=== PATIENT | female | born 1955 | race Caucasian/White ===

== ENCOUNTER 2024-01-04 23:09 | Emergency (ER) | payer OTHER ==
[2024-01-04 23:15] VITALS: RESP 18; BMI 28.7
[2024-01-05 00:16] LABS: HEMATOCRIT 41.9 % (32.4-45.2); HEMOGLOBIN 14.2 GM/dL (10.7-15.3); MCH 30.6 pg (25.7-33.7); MEAN PLT VOLUME 8.9 fl (7.5-11.1); PLATELET COUNT 257 10^3/uL (134-434); RBC 4.65 M/mm3 (3.60-5.2); RDW 13.8 % (11.6-15.6)
[2024-01-05] MEDS: LACTATED RINGERS SOLUTION 1000 ML INFUS.BAG IV ONE (00:18)
[2024-01-05 00:27] LABS: INR 1.04 (0.83-1.09)
[2024-01-05 00:29] LABS: ACTIVATED PTT 30.8 SECONDS (25.2-36.5)
[2024-01-05 00:33] LABS: POTASSIUM 4.7 mmol/L (3.5-5.1)
[2024-01-05 00:35] LABS: ALBUMIN 3.6 g/dl (3.4-5.0); CALCIUM 8.4 mg/dL (8.5-10.1)
[2024-01-05 00:36] LABS: BLOOD UREA NITROGEN 22.7 mg/dL (7-18); MAGNESIUM 2.2 mg/dL (1.8-2.4)
[2024-01-05 00:39] LABS: CREATININE 1.1 mg/dL (0.55-1.3)
[2024-01-05 00:40] LABS: TOT PROT 7.1 g/dl (6.4-8.2)
[2024-01-05] MEDS ORDERED: ONDANSETRON 4 MG/2 ML VIAL ONE (00:44)
[2024-01-05 00:46] LABS: BILIRUBIN,TOTAL 1.3 mg/dL (0.2-1)
[2024-01-05] MEDS: ONDANSETRON 4 MG/2 ML VIAL IVPUSH ONE (00:50)
[2024-01-05 01:14] LABS: URINE APPEARANCE CLEAR; URINE BILIRUBIN NEGATIVE (NEGATIVE); URINE COLOR YELLOW; URINE GLUCOSE (UA) NEGATIVE (NEGATIVE); URINE KETONE NEGATIVE (NEGATIVE); URINE LEUK ESTERASE NEGATIVE (NEGATIVE); URINE NITRITE NEGATIVE (NEGATIVE); URINE PROTEIN NEGATIVE (NEGATIVE); URINE UROBILINOGEN 0.2 mg/dL (0.2-1.0)
[2024-01-05] MEDS ORDERED: ACETAMINOPHEN INJECTION 100 ML IVPB ONE (03:04)
[2024-01-05] MEDS: ACETAMINOPHEN 1000 MG/100 ML BAG IVPB ONE (04:00)
[2024-01-05 05:07] LABS: ANISOCYTOSIS 1+; MACROCYTOSIS 0
[2024-01-05 05:34] VITALS: BP 133/78; PULSE 70; TEMP 98.1
== END 2024-01-05 05:34 | disposition home or self-care (01) ==
LOC: JER 23:09
PROC: 3E033GC Introduction of Other Therapeutic Substance into Peripheral Vein, Percutaneous Approach (ICD-10-PCS; principal; 2024-01-05)
PROC: 3E033NZ Introduction of Analgesics, Hypnotics, Sedatives into Peripheral Vein, Percutaneous Approach (ICD-10-PCS; 2024-01-05)
DX: N23 Unspecified renal colic (principal); R11.2 Nausea with vomiting, unspecified; R68.83 Chills (without fever)
CPT/HCPCS: 36415; 74177-TC; 80053; 81003; 83735; 85025; 85610; 85730; 87086; 99285-25; J0131